=== PATIENT | male | born 1965 | race Caucasian/White ===

== ENCOUNTER 2017-03-24 18:37 | Observation (INO) | payer BC ==
[2017-03-24 18:55] LABS: Glucose,Whole Blood 87 mg/dL (75-99)
[2017-03-24] MEDS ORDERED: RX INFO: IV CONTRAST WAS GIVEN 1 EACH MISC MISCELLANE PRN (19:16)
[2017-03-24] MEDS ORDERED: SODIUM CHLORIDE 0.9% 1,000 ML IV STA (19:16)
[2017-03-24] MEDS ORDERED: diphenhydrAMINE 50 MG/ML 1 ML VIAL IVP STA (19:17)
[2017-03-24] MEDS ORDERED: methylPREDNISolone SOD SUCCI 125 MG/2 ML VIAL IV STA (19:18)
[2017-03-24] MEDS ORDERED: FAMOTIDINE 20 MG/2 ML VIAL IV STA (19:19)
[2017-03-24 19:32] LABS: Basophils % (A) 0 %; CH 33.1; CHCM 34.8; Eosinophils # (A) 0.2 k/uL (0-0.7); Eosinophils % (A) 2 %; HCT 45.6 % (39.0-53.0); HDW 2.13; HGB 15.3 gm/dL (13.0-17.5); Luc # (Auto) 0.14; Luc % (Auto) 2; Lymphocytes # (A) 1.8 k/uL (1.0-4.8); Lymphocytes % (A) 25 %; MCHC 33.5 g/dL (31.0-37.0); MCV 95.5 fL (80.0-100.0); Mean Platelet Volume 7.3; Monocytes # (A) 0.5 k/uL (0-1.0); Monocytes % (A) 7 %; Neutrophils # (A) 4.5 k/uL (1.3-7.7); Neutrophils % (A) 64 %; RBC 4.77 m/uL (4.30-5.90); RDW 12.5 % (11.5-15.5); WBC 7.1 k/uL (3.8-10.6); WBC (Perox) 6.99
[2017-03-24 19:41] LABS: INR 1.1 (<1.2); Prothrombin Time 10.8 sec (9.0-12.0)
[2017-03-24 19:49] LABS: Partial Thromboplastin Time 22.7 sec (22.0-30.0)
[2017-03-24 19:54] LABS: Appearance,Urine Clear (Clear); Bilirubin,Urine Negative (Negative); Glucose,Urine (UA) Negative (Negative); Ketones,Urine Negative (Negative); Leukocyte Esterase,Urine Negative (Negative); Nitrite,Urine Negative (Negative); PH, Urine 6.5 (5.0-8.0); Protein,Urine Negative (Negative); Specific Gravity,Urine 1.007 (1.001-1.035); UA Billing (MACRO vs. MICRO) CHEM; Urobilinogen,Urine <2.0 mg/dL (<2.0)
[2017-03-24 19:56] LABS: ALT 44 U/L (21-72); AST 45 U/L (17-59); Alkaline Phosphatase 52 U/L (38-126); Anion Gap 11 mmol/L; Blood Urea Nitrogen 18 mg/dL (9-20); Calcium 9.4 mg/dL (8.4-10.2); Carbon Dioxide 27 mmol/L (22-30); Chloride 101 mmol/L (98-107); Glucose 72 mg/dL (74-99); Non-African American GFR(MDRD) >60 (>60 ml/min/1.73 sqM); Potassium 4.5 mmol/L (3.5-5.1); Sodium 139 mmol/L (137-145); Total Bilirubin 0.7 mg/dL (0.2-1.3); Total Protein 6.5 g/dL (6.3-8.2)
[2017-03-24 20:16] LABS: Creatine Kinase 186 U/L (55-170)
--- NOTE | 2017-03-24 20:22 | CT ---
EXAMINATION TYPE: CT brain wo con DATE OF EXAM: 03/24/2017 COMPARISON: NONE HISTORY: Memory loss. CT DLP: 1017.7 mGycm Automated exposure control for dose reduction was used. FINDINGS: Ventricles of normal size. There is no mass effect nor midline shift. There is no sign of intracrania l hemorrhage. The calvarium is intact. IMPRESSION: NEGATIVE CT SCAN OF THE BRAIN.
--- NOTE | 2017-03-24 20:24 | XR ---
EXAMINATION TYPE: XR chest 2V DATE OF EXAM: 03/24/2017 COMPARISON: NONE HISTORY: Altered mental status TECHNIQUE: Frontal and lateral views of the chest are obtained. FINDINGS: There is no heart failure nor confluent pneumonic infiltrate. Heart size is normal. Costop hrenic angles are clear. Bony thorax is intact. IMPRESSION: Normal chest
[2017-03-24 20:27] LABS: Troponin I <0.012 ng/mL (0.000-0.034)
--- NOTE | 2017-03-24 20:33 | CT ---
EXAMINATION TYPE: CT angio head neck DATE OF EXAM: 03/24/2017 HISTORY: Sudden onset of memory loss. COMPARISON: NONE CT DLP: 299.6 mGycm. Automated Exposure Control for Dose Reduction was Utilized. TECHNIQUE: CTA scan of the neck is performed with IV Contrast, patient injected with 65 mL of Omnipa que 350, axial images are obtained, coronal and sagittal reformatted images are reviewed. Three-D rec onstructed images are created on an independent workstation and reviewed. FINDINGS: There is normal branching pattern of the great vessels on the aortic arch. There is bilateral wide pa tency of the vertebral arteries. There is bilateral patency of the carotid arteries. There is no evid ence of carotid dissection. There is arterial flow in the anterior middle and posterior cerebral arteries. There is arterial flow in the vertebrobasilar artery system. There is no evidence of aneurysm or neovascularity. There is n o mass effect. IMPRESSION: Normal CT angiogram of the neck. Normal CT angiogram of the brain.
[2017-03-24] MEDS ORDERED: ASPIRIN 81 MG PO STA (21:37)
[2017-03-24] MEDS ORDERED: ONDANSETRON 4 MG/2 ML VIAL IVP PRN (21:44)
[2017-03-24] MEDS ORDERED: ACETAMINOPHEN TAB 325 MG TAB PO PRN (21:44)
[2017-03-24] MEDS ORDERED: NALOXONE 0.4 MG/ML 1 ML VIAL IV PRN (21:44)
--- NOTE | 2017-03-24 21:44 | ED ---
Neuro HPI - General Chief Complaint: Neuro Symptoms/Deficit Stated Complaint: sudden onset memory loss Time Seen by Provider: 03/24/17 18:51 Source: patient Mode of arrival: ambulatory Limitations: no limitations - History of Present Illness Is the patient presenting with stroke symptoms?: No Last Known Well Date: 03/24/17 Last Known Well Time: 17:30 Initial Comments: 51 years old gentleman PG cooked dinner tonight when he sat down to eat he couldn't recall how old they are he had no recollection of unspecified length of time he had a blackout of memory for time. Around 5 PM today, he didn't pass out years ago. Denies any headaches white male no blurred vision no chest pain or shortness of breath no abdominal pain no frequency or dysuria dysuria no obvious neuro deficits - Related Data Home Medications: Home Medications Medication Instructions Recorded Confirmed No Known Home Medications [No 03/24/17 03/24/17 Known Home Medications] Allergies/Adverse Reactions: Allergies Allergy/AdvReac Type Severity Reaction Status Date / Time Iodinated Contrast- Oral and Allergy Swelling Verified 03/24/17 19:27 IV Dye iodine Allergy Swelling Verified 03/24/17 19:27 shellfish derived [Shellfish] Allergy Swelling Verified 03/24/17 19:27 Review of Systems ROS Statement: Those systems with pertinent positive or pertinent negative responses have been documented in the HPI. ROS Other: All systems not noted in ROS Statement are negative. General Exam - General Exam Comments Initial Comments: General: The patient is awake and alert, in no distress, and does not appear acutely ill. GCS is 15 Skin: Skin is warm and dry and no rashes or lesions are noted. Eye: Pupils are equal, round and reactive to light, extra-ocular movements are intact; there is normal conjunctiva bilaterally. Ears, nose, mouth and throat: There are moist mucous membranes and no oral lesions. Neck: The neck is supple, there is no tenderness Cardiovascular: There is a regular rate and rhythm. No murmur, rub or gallop is appreciated. Respiratory: To auscultation bilateral, no wheezing no rhonchi no distress respiratory espinoza noticed Gastrointestinal: Soft, non-distended, non-tender abdomen without masses or organomegaly noted. There is no rebound or guarding present. Bowel sounds are unremarkable. Back: There is no tenderness to palpation in the midline. There is no obvious deformity. Musculoskeletal: Normal ROM, no tenderness, There is no pedal edema. There is no calf tenderness or swelling. No cords were appreciated. Neurological: CN II-XII intact, Cranial nerves III through XII are intact. There are no obvious motor or sensory deficits. Coordination appears grossly intact. Speech is normal. Psychiatric: Cooperative, appropriate mood & affect, normal judgment. Limitations: no limitations Stroke MDM - Lab Data Result diagrams: 03/24/17 19:15 03/24/17 19:15 Lab Results 03/24/17 03/24/17 03/24/17 Range/Units 18:50 19:15 19:15 WBC 7.1 (3.8-10.6) k/uL RBC 4.77 (4.30-5.90) m/uL Hgb 15.3 (13.0-17.5) gm/dL Hct 45.6 (39.0-53.0) % MCV 95.5 (80.0-100.0) fL MCH 32.0 (25.0-35.0) pg MCHC 33.5 (31.0-37.0) g/dL RDW 12.5 (11.5-15.5) % Plt Count 203 (150-450) k/uL Neutrophils % 64 % Lymphocytes % 25 % Monocytes % 7 % Eosinophils % 2 % Basophils % 0 % Neutrophils # 4.5 (1.3-7.7) k/uL Lymphocytes # 1.8 (1.0-4.8) k/uL Monocytes # 0.5 (0-1.0) k/uL Eosinophils # 0.2 (0-0.7) k/uL Basophils # 0.0 (0-0.2) k/uL PT (9.0-12.0) sec INR (<1.2) APTT (22.0-30.0) sec Sodium (137-145) mmol/L Potassium (3.5-5.1) mmol/L Chloride (98-107) mmol/L Carbon Dioxide (22-30) mmol/L Anion Gap mmol/L BUN (9-20) mg/dL Creatinine (0.66-1.25) mg/dL Est GFR (MDRD) Af Amer (>60 ml/min/1.73 sqM) Est GFR (MDRD) Non-Af (>60 ml/min/1.73 sqM) Glucose (74-99) mg/dL POC Glucose (mg/dL) 87 (75-99) mg/dL POC Glu Entertainment Reporter ID Jennifer Coto Calcium (8.4-10.2) mg/dL Total Bilirubin (0.2-1.3) mg/dL AST (17-59) U/L ALT (21-72) U/L Alkaline Phosphatase (38-126) U/L Total Creatine Kinase 186 H (55-170) U/L CK-MB (CK-2) 1.0 (0.0-2.4) ng/mL CK-MB (CK-2) Rel Index 0.5 Troponin I <0.012 (0.000-0.034) ng/mL Total Protein (6.3-8.2) g/dL Albumin (3.5-5.0) g/dL Urine Color Urine Appearance (Clear) Urine pH (5.0-8.0) Ur Specific Lefors (1.001-1.035) Urine Protein (Negative) Urine Glucose (UA) (Negative) Urine Ketones (Negative) Urine Blood (Negative) Urine Nitrite (Negative) Urine Bilirubin (Negative) Urine Urobilinogen (<2.0) mg/dL Ur Leukocyte Esterase (Negative) Urine Opiates Screen (NotDetected) Ur Oxycodone Screen (NotDetected) Urine Methadone Screen (NotDetected) Ur Propoxyphene Screen (NotDetected) Ur Barbiturates Screen (NotDetected) U Tricyclic Antidepress (NotDetected) Ur Phencyclidine Scrn (NotDetected) Ur Amphetamines Screen (NotDetected) U Methamphetamines Scrn (NotDetected) U Benzodiazepines Scrn (NotDetected) Urine Cocaine Screen (NotDetected) U Marijuana (THC) Screen (NotDetected) 03/24/17 03/24/17 03/24/17 Range/Units 19:15 19:15 19:46 WBC (3.8-10.6) k/uL RBC (4.30-5.90) m/uL Hgb (13.0-17.5) gm/dL Hct (39.0-53.0) % MCV (80.0-100.0) fL MCH (25.0-35.0) pg MCHC (31.0-37.0) g/dL RDW (11.5-15.5) % Plt Count (150-450) k/uL Neutrophils % % Lymphocytes % % Monocytes % % Eosinophils % % Basophils % % Neutrophils # (1.3-7.7) k/uL Lymphocytes # (1.0-4.8) k/uL Monocytes # (0-1.0) k/uL Eosinophils # (0-0.7) k/uL Basophils # (0-0.2) k/uL PT 10.8 (9.0-12.0) sec INR 1.1 (<1.2) APTT 22.7 (22.0-30.0) sec Sodium 139 (137-145) mmol/L Potassium 4.5 (3.5-5.1) mmol/L Chloride 101 (98-107) mmol/L Carbon Dioxide 27 (22-30) mmol/L Anion Gap 11 mmol/L BUN 18 (9-20) mg/dL Creatinine 1.00 (0.66-1.25) mg/dL Est GFR (MDRD) Af Amer >60 (>60 ml/min/1.73 sqM) Est GFR (MDRD) Non-Af >60 (>60 ml/min/1.73 sqM) Glucose 72 L (74-99) mg/dL POC Glucose (mg/dL) (75-99) mg/dL POC Glu Entertainment Reporter ID Calcium 9.4 (8.4-10.2) mg/dL Total Bilirubin 0.7 (0.2-1.3) mg/dL AST 45 (17-59) U/L ALT 44 (21-72) U/L Alkaline Phosphatase 52 (38-126) U/L Total Creatine Kinase (55-170) U/L CK-MB (CK-2) (0.0-2.4) ng/mL CK-MB (CK-2) Rel Index Troponin I (0.000-0.034) ng/mL Total Protein 6.5 (6.3-8.2) g/dL Albumin 4.2 (3.5-5.0) g/dL Urine Color Yellow Urine Appearance Clear (Clear) Urine pH 6.5 (5.0-8.0) Ur Specific L[place] 1.007 (1.001-1.035) Urine Protein Negative (Negative) Urine Glucose (UA) Negative (Negative) Urine Ketones Negative (Negative) Urine Blood Negative (Negative) Urine Nitrite Negative (Negative) Urine Bilirubin Negative (Negative) Urine Urobilinogen <2.0 (<2.0) mg/dL Ur Leukocyte Esterase Negative (Negative) Urine Opiates Screen Not Detected (NotDetected) Ur Oxycodone Screen Not Detected (NotDetected) Urine Methadone Screen Not Detected (NotDetected) Ur Propoxyphene Screen Not Detected (NotDetected) Ur Barbiturates Screen Not Detected (NotDetected) U Tricyclic Antidepress Not Detected (NotDetected) Ur Phencyclidine Scrn Not Detected (NotDetected) Ur Amphetamines Screen Not Detected (NotDetected) U Methamphetamines Scrn Not Detected (NotDetected) U Benzodiazepines Scrn Not Detected (NotDetected) Urine Cocaine Screen Not Detected (NotDetected) U Marijuana (THC) Screen Not Detected (NotDetected) Past Medical History Past Medical History: No Reported History History of Any Multi-Drug Resistant Organisms: None Reported Past Surgical History: Cholecystectomy Additional Past Surgical History / Comment(s): cervical repair Past Psychological History: No Psychological Hx Reported Course Vital Signs 03/24/17 03/24/17 03/24/17 18:38 20:18 21:16 Temperature 97.2 F L Pulse Rate 81 78 84 Respiratory 18 18 18 Rate Blood Pressure 139/84 135/83 134/89 O2 Sat by Pulse 99 99 98 Oximetry EKG is normal sinus rhythm ventricular rate is 81 HI interval is 152 QRS duration is 86 QT/QTc is 372/432 review of this EKG does not reveal any ST elevation or ST depression Patient was reassessed at [address] is normal, CT angios normal chest x- ray CBC, INR, troponin, EKG and urinalysis all unremarkable differential diagnosis with the amnesia or TIA and discussed with the patient and recommended that we'll watch him overnight and have the neurologist see him tomorrow morning he agreed that we'll go ahead him admit him under Dr. guevara service and will call Dr. Landeros in the morning Disposition Clinical Impression: TIA (transient ischemic attack), Global amnesia Disposition: ADMITTED IP TO THIS HOSP Condition: Good Referrals: Marlena Agudelo MD [Primary Care Provider] - 1-2 days
[2017-03-25 00:19] VITALS: BMI 24.0
[2017-03-25] MEDS ORDERED: SUMAtriptan SUCCINATE 50 MG TAB PO PRN (00:40)
[2017-03-25] MEDS ORDERED: MORPHINE SULFATE 10 MG/ML SYRINGE IVP PRN (05:33)
--- NOTE | 2017-03-25 10:51 | P.HPIM ---
History of Present Illness H&P Date: 03/25/17 Chief Complaint: Loss of memory for about 45 minutes This is a 51-year-old male, patient of Dr. Agudelo. He has a past medical history of migraines and chronic neck pain with previous neck surgery. Patient came into the emergency room with complaints of memory loss for about 45 minute period of time. Patient went to work out yesterday with his . He just lifted weights did not do the cardio part of his work out because of fatigue. They came home. Patient was cooking dinner. He took a phone call. Sit down at the table and looked at his and said who cooked dinner. Patient does not remember cooking the dinner. He does not remember having the phone call. Patient was also putting weird condiments on his plate that didn't along with the dinner. became concerned when the patient had a blank look on his face. He repeated about 7 times "who made dinner." There is no slurring speech no facial droop. Denies any numbness or tingling on one side of the body. Denies any chest pain or shortness of breath. Denies any burning with urination. He has not been sick with any nausea or vomiting. Denies any bowel movement changes. Drug screen was negative. Computed tomography scan of the brain negative. CTA of the head and neck negative. Chest x-ray negative. Patient does report having a previous MRI of the brain done at [facility] to his migraines and he was told he had some white spots that were noted on the MRI. Patient has been admitted to the sixth floor. Telemetry- espinoza he is remained in normal sinus rhythm. We'll check an EEG. Patient has never had symptoms like this before. Patient did have a blood sugar of 72 in the emergency room. He did not get a chance to eat the dinner that he had made. But no previous history of any hypoglycemia or diabetes. Review of Systems Please refer to HPI otherwise unremarkable Past Medical History Past Medical History: No Reported History Additional Past Medical History / Comment(s): migraines, herniated disc in L4 & L5 History of Any Multi-Drug Resistant Organisms: None Reported Past Surgical History: Cholecystectomy Additional Past Surgical History / Comment(s): cervical repair Past Anesthesia/Blood Transfusion Reactions: No Reported Reaction Past Psychological History: No Psychological Hx Reported Smoking Status: Never smoker Past Drug Use History: None Reported - Past Family History Mother Additional Family Medical History / Comment(s): SCLERODERMA Medications and Allergies Home Medications Medication Instructions Recorded Confirmed Type Rizatriptan Benzoate [Maxalt] 10 mg PO Q8HR PRN 03/25/17 03/25/17 History Allergies Allergy/AdvReac Type Severity Reaction Status Date / Time Iodinated Contrast- Oral and Allergy Swelling Verified 03/24/17 19:27 IV Dye iodine Allergy Swelling Verified 03/24/17 19:27 shellfish derived [Shellfish] Allergy Swelling Verified 03/24/17 19:27 Physical Exam Vitals: Vital Signs Temp Pulse Pulse Resp BP BP Pulse Ox 03/25/17 08:33 97.7 F 89 16 132/84 98 03/25/17 04:00 97.7 F 85 16 121/80 97 03/24/17 23:40 81 16 03/24/17 23:34 97.0 F L 81 16 123/83 94 L 03/24/17 23:33 98.3 F 85 18 124/67 97 03/24/17 22:14 97.7 F 87 18 125/81 97 03/24/17 21:16 84 18 134/89 98 03/24/17 20:18 78 18 135/83 99 03/24/17 18:38 97.2 F L 81 18 139/84 99 Intake and Output 03/24/17 03/25/17 03/25/17 22:59 06:59 14:59 Intake Total 950 237 Output Total 400 Balance 550 237 Intake: Intake, IV Titration 950 Amount Sodium Chloride 0.9% 1, 950 000 ml @ 100 mls/hr IV . Q10H STA Rx#:[id number] Oral 237 Output: Urine 400 Other: Voiding Method Urinal Urinal Weight 76.204 kg 77.9 kg Head normocephalic Neck supple Lungs clear to auscultation bilaterally no wheezing or crackles Heart regular rate and rhythm S1-S2, no rub or gallop Abdomen is soft nontender nondistended positive bowel sounds no hepatosplenomegaly Extremities no edema Neuro alert and orientated to 3 Results CBC & Chem 7: 03/24/17 19:15 03/24/17 19:15 Labs: Abnormal Lab Results - Last 24 Hours (Table) 03/24/17 03/24/17 Range/Units 19:15 19:15 Glucose 72 L (74-99) mg/dL Total Creatine Kinase 186 H (55-170) U/L Thrombosis Risk Factor Assmnt - Choose All That Apply Any of the Below Risk Factors Present?: Yes Each Factor Represents 1 point: Age 41-60 years Other Risk Factors: No Other congenital or acquired thrombophilia - If yes, enter type in comment: No Thrombosis Risk Factor Assessment Total Risk Factor Score: 1 Thrombosis Risk Factor Assessment Level: Low Risk Assessment and Plan Assessment: 1. Acute loss of memory: Exact etiology unclear. Computed tomography scan of the brain negative. CTA of the head and neck negative. Chest x-ray negative. EKG showing a normal sinus rhythm. Check EEG to rule out seizure activity. Urinalysis negative. Drug screen negative. Patient did have a blood sugar of 72. We'll repeat labs now. And monitor. Neurology has been consulted. 2. History of migraine headaches 3. Chronic neck pain with previous neck surgery GI prophylaxis Pepcid and DVT prophylaxis subcu heparin Time with Patient: Greater than 30 (Greater than 50% of the total time spent in counseling and coordination of care.I performed an examination of the patient and discussed their management with the physician Packing Floor Worker. I have reviewed the Physician Packing Floor Worker's notes and agree with the documented findings and plan of care)
--- NOTE | 2017-03-25 11:45 | ECHOF ---
Referral Reason:TIA MEASUREMENTS -------- HEIGHT: 177.8 cm WEIGHT: 77.6 kg BP: 132/84 RVIDd: 2.1 cm (< 3.3) IVSd: 1.0 cm (0.6 - 1.1) LVIDd: 3.7 cm (3.9 - 5.3) LVPWd: 1.1 cm (0.6 - 1.1) IVSs: 1.6 cm LVIDs: 2.7 cm LVPWs: 1.5 cm LA Diam: 2.8 cm (2.7 - 3.8) LAESV Index (A-L): 15.64 ml/m Ao Diam: 3.9 cm (2.0 - 3.7) AV Cusp: 2.5 cm (1.5 - 2.6) MV EXCURSION: 18.612 mm (> 18.000) MV EF SLOPE: 108 mm/s (70 - 150) EPSS: 0.6 cm MV E Cheikh: 0.91 m/s MV DecT: 195 ms MV A Cheikh: 0.78 m/s MV E/A Ratio: 1.18 FINDINGS -------- Sinus rhythm. This was a technically good study. The left ventricular size is normal. There is borderline concentric left ventricular hypertrophy. Overall left ventricular systolic function is normal with, an EF between 55 - 60 %. The right ventricle is normal in size. Normal LA size by volume 22+/-6 ml/m2. The right atrium was not well visualized. The aortic valve is trileaflet, and appears structurally normal. No aortic stenosis or regurgitation. The mitral valve is normal. The tricuspid valve appears structurally normal. Trace/mild (physiologic) pulmonic regurgitation. The aortic root is dilated measuring 3.9cm. Normal inferior vena cava with normal inspiratory collapse consistent with estimated right atrial pre ssure of 5 mmHg. There is no pericardial effusion. CONCLUSIONS -------- 1. Sinus rhythm. 2. This was a technically good study. 3. There is borderline concentric left ventricular hypertrophy. 4. Overall left ventricular systolic function is normal with, an EF between 55 - 60 %. 5. Normal LA size by volume 22+/-6 ml/m2. 6. The right atrium was not well visualized. 7. The aortic valve is trileaflet, and appears structurally normal. No aortic stenosis or regurgitati on. 8. The mitral valve is normal. 9. The tricuspid valve appears structurally normal. 10. Trace/mild (physiologic) pulmonic regurgitation. 11. The aortic root is dilated measuring 3.9cm. 12. Normal inferior vena cava with normal inspiratory collapse consistent with estimated right atrial pressure of 5 mmHg. 13. There is no pericardial effusion. CADASTRAL ENGINEER: Aline Parsons RDCS
[2017-03-25 12:05] LABS: Anion Gap 8 mmol/L; Blood Urea Nitrogen 16 mg/dL (9-20); Calcium 8.7 mg/dL (8.4-10.2); Carbon Dioxide 26 mmol/L (22-30); Chloride 106 mmol/L (98-107); Glucose 114 mg/dL (74-99); Non-African American GFR(MDRD) >60 (>60 ml/min/1.73 sqM); Potassium 4.3 mmol/L (3.5-5.1); Sodium 140 mmol/L (137-145)
--- NOTE | 2017-03-25 18:13 | P.CNNES ---
History of Present Illness Consult date: 03/25/17 Requesting physician: Phoenix Bowen Reason for Consult: TIA History of Present Illness: Patient is a pleasant 51-year-old male who is being evaluated by the neurology service on 03/25/2017 per the request of Dr. BOWEN for loss of memory. Patient reports he had gone to work out with his yesterday. He states they came home and he had made dinner. They sat down to eat dinner and he does not recall preparing the meals. His sitdown with him and he repetitively asked who made the dinner. was concerned and patient was brought to the hospital. No seizure-like activity was described. Patient had no slurring of speech and no lateralizing weakness. No facial droop was noted. Computed tomography scan of the brain was negative for any acute process. Patient had CTA of the head and neck which also were negative for any acute findings. EKG on admission showed normal sinus rhythm. Patient denies any prior episodes. Vital signs on admission were temperature 97.7, respiratory rate 16, pulse 85, and blood pressure 121/80. Labs on admission were essentially unremarkable. Patient has had no return of symptoms since admission. At the time of my evaluation, patient is resting comfortably in bed and appears to be in no acute distress. is at the bedside. Review of Systems REVIEW OF SYSTEMS: Otherwise unremarkable and noncontributory. Past Medical History Past Medical History: No Reported History Additional Past Medical History / Comment(s): migraines, herniated disc in L4 & L5 History of Any Multi-Drug Resistant Organisms: None Reported Past Surgical History: Cholecystectomy Additional Past Surgical History / Comment(s): cervical repair Past Anesthesia/Blood Transfusion Reactions: No Reported Reaction Past Psychological History: No Psychological Hx Reported Smoking Status: Never smoker Past Drug Use History: None Reported - Past Family History Mother Additional Family Medical History / Comment(s): SCLERODERMA Medications and Allergies Home Medications Medication Instructions Recorded Confirmed Type Rizatriptan Benzoate [Maxalt] 10 mg PO Q8HR PRN 03/25/17 03/25/17 History Allergies Allergy/AdvReac Type Severity Reaction Status Date / Time Iodinated Contrast- Oral and Allergy Swelling Verified 03/24/17 19:27 IV Dye iodine Allergy Swelling Verified 03/24/17 19:27 shellfish derived [Shellfish] Allergy Swelling Verified 03/24/17 19:27 Physical Examination - Vital Signs Vital Signs: Vital Signs Temp Pulse Pulse Resp BP BP Pulse Ox 03/25/17 16:00 98.2 F 70 16 106/68 97 03/25/17 12:20 98.1 F 83 16 120/70 100 03/25/17 08:33 97.7 F 89 16 132/84 98 03/25/17 04:00 97.7 F 85 16 121/80 97 03/24/17 23:40 81 16 03/24/17 23:34 97.0 F L 81 16 123/83 94 L 03/24/17 23:33 98.3 F 85 18 124/67 97 03/24/17 22:14 97.7 F 87 18 125/81 97 03/24/17 21:16 84 18 134/89 98 03/24/17 20:18 78 18 135/83 99 03/24/17 18:38 97.2 F L 81 18 139/84 99 Intake and Output 03/25/17 03/25/17 03/25/17 06:59 14:59 22:59 Intake Total 950 477 Output Total 400 Balance 550 477 Intake: Intake, IV Titration 950 Amount Sodium Chloride 0.9% 1, 950 000 ml @ 100 mls/hr IV . Q10H STA Rx#:[id number] Oral 477 Output: Urine 400 Other: Voiding Method Urinal Urinal Urinal Weight 77.9 kg PHYSICAL EXAM: GENERAL APPEARANCE: Patient is a well-developed, male who appears to be in no acute distress. HEENT: Normocephalic, atraumatic, no facial asymmetry is seen. Neck is supple with no masses felt. CARDIOVASCULAR: Regular rate and rhythm. ABDOMEN: Nontender, nondistended. EXTREMITIES: Show no edema or clubbing. NEUROLOGICAL EXAM: Patient is awake, alert, and oriented 3. Speech and language are normal. Strength is full in all 4 extremities. Sensory exam to light touch is normal in all 4 extremities. No facial asymmetry is seen on cranial nerve testing. No tremors or seizure-like activity noted. Results - Laboratory Findings CBC and BMP: 03/24/17 19:15 03/25/17 11:03 Abnormal Lab Findings: Abnormal Labs 03/24/17 03/24/17 03/25/17 19:15 19:15 11:03 Glucose 72 L 114 H Total Creatine Kinase 186 H Assessment and Plan Plan: Impression: 1. Transient amnestic attack secondary to transient ischemic attack 2. History of migraines 3. History of cervical disc displacement Recommendations: It does appear patient suffered a transient amnestic attack secondary to transient ischemic attack. No further episodes since admission. CT of the brain was negative for any acute process. CTA of the brain and neck were also normal. I will order carotid Dopplers. I recommend aspirin 81 mg by mouth daily. I will order an EEG, fasting lipid panel, and serum homocysteine level. Continue neurological checks. I will continue to follow with you. Further recommendations to follow. Thank you for allowing me to participate in the care of your patient. Feel free to call with any questions or concerns. I performed an examination of the patient and discussed the management with the LINK KNITTING MACHINE OPERATOR. I have reviewed the LINK KNITTING MACHINE OPERATOR notes and agree with the findings and plan of care.
[2017-03-25 19:01] LABS: Cholesterol 142 mg/dL (<200); HDL Cholesterol 57 mg/dL (40-60)
--- NOTE | 2017-03-25 19:33 | US ---
EXAMINATION TYPE: US carotid duplex BILAT DATE OF EXAM: 03/25/2017 COMPARISON: NONE CLINICAL HISTORY: TIA. EXAM MEASUREMENTS: RIGHT: Peak Systolic Velocity (PSV) cm/sec ----- Right CCA: 66.7 ----- Right ICA: 78.4 ----- Right ECA: 81.3 ICA/CCA ratio: 1.2 RIGHT: End Diastole cm/sec ----- Right CCA: 23.1 ----- Right ICA: 34.8 ----- Right ECA: 11.5 LEFT: Peak Systolic Velocity (PSV) cm/sec ----- Left CCA: 85.6 ----- Left ICA: 75.4 ----- Left ECA: 68.2 ICA/CCA ratio: 0.9 LEFT: End Diastole cm/sec ----- Left CCA: 31.8 ----- Left ICA: 26.0 ----- Left ECA: 18.8 VERTEBRALS (direction of flow): Right Vertebral: Antegrade Left Vertebral: Antegrade Rhythm: Normal Minimal amount of plaque visualized bilaterally. No elevated velocities, no significant stenosis. IMPRESSION: There is antegrade flow in the vertebral arteries. The images and measurements suggest 2 0% stenosis in both internal carotid arteries. Criteria for Assigning % of Stenosis / Diameter reduction (Estimation based on the indirect measurements of the internal carotid artery velocities (ICA PSV). 1. Normal (no stenosis)=ICA PSV < 125 cm/s: ratio < 2.0: ICA EDV<40 cm/s. 2. Less than 50% stenosis=ICA PSV < 125 cm/s: ratio < 2.0: ICA EDV<40 cm/s. 3. 50 to 69% stenosis=ICA PSV of 125 to 230 cm/s: ration 2.0 ? 4.0: ICA EDV 40-100 cm/s. 4. Greater than 70% stenosis to near occlusion= ICA PSV > 230 cm/s: ratio > 4.0: ICA EDV > 100 cm/s. 5. Near occlusion= ICA PSV velocities may be low or undetectable: variable ratio and ICA EDV. 6. Total occlusion=unable to detect flow.
[2017-03-25] MEDS: ASPIRIN 81 MG PO SCH (19:46)
[2017-03-25] MEDS: HEPARIN SODIUM,PORCINE 5,000 UNIT/ML 1 ML VIAL SQ SCH (19:46)
[2017-03-25 20:03] VITALS: RESP 18
[2017-03-26 06:44] LABS: Basophils % (A) 0 %; CH 32.3; CHCM 32.8; Eosinophils # (A) 0.1 k/uL (0-0.7); Eosinophils % (A) 1 %; HCT 43.7 % (39.0-53.0); HDW 2.05; HGB 14.1 gm/dL (13.0-17.5); Luc # (Auto) 0.11; Luc % (Auto) 2; Lymphocytes % (A) 30 %; MCH 31.8 pg (25.0-35.0); MCHC 32.2 g/dL (31.0-37.0); MCV 98.8 fL (80.0-100.0); Mean Platelet Volume 7.9; Monocytes # (A) 0.4 k/uL (0-1.0); Monocytes % (A) 6 %; Neutrophils # (A) 4.3 k/uL (1.3-7.7); Neutrophils % (A) 62 %; RBC 4.42 m/uL (4.30-5.90); RDW 13.9 % (11.5-15.5); WBC 6.9 k/uL (3.8-10.6); WBC (Perox) 6.64
[2017-03-26 07:00] LABS: ALT 32 U/L (21-72); AST 23 U/L (17-59); Alkaline Phosphatase 43 U/L (38-126); Anion Gap 6 mmol/L; Blood Urea Nitrogen 16 mg/dL (9-20); Calcium 8.5 mg/dL (8.4-10.2); Carbon Dioxide 28 mmol/L (22-30); Chloride 108 mmol/L (98-107); Glucose 90 mg/dL (74-99); Non-African American GFR(MDRD) >60 (>60 ml/min/1.73 sqM); Potassium 3.9 mmol/L (3.5-5.1); Sodium 142 mmol/L (137-145); Total Bilirubin 0.6 mg/dL (0.2-1.3); Total Protein 5.3 g/dL (6.3-8.2)
[2017-03-26] MEDS: ASPIRIN 81 MG PO SCH (08:43)
--- NOTE | 2017-03-26 11:11 | P.PN ---
Subjective Progress Note Date: 03/26/17 Patient is a pleasant 51-year-old male who is being followed by the neurology service for TIA. Patient's doing much better today. Patient states he feels back to baseline. is at the bedside and agrees. Patient still does not recall loss of time he had which brought him to [facility] emergency room. As you recall, computed tomography scan of the brain was negative for any acute process. Patient had CTA of the head and neck which were negative for any acute findings. EKG showed normal sinus rhythm. Patient denies any history of CVA or TIA. Patient was not on any antiplatelet therapy at home. No seizure-like activity was described. At the time of my evaluation, patient is resting comfortably in bed and appears to be in no acute distress. is at the bedside. Objective - Vital Signs Vital signs: Vital Signs Temp 97.1 F L 03/26/17 04:00 Pulse 76 03/26/17 04:00 Resp 18 03/26/17 04:00 BP 108/67 03/26/17 04:00 Pulse Ox 96 03/26/17 04:00 Intake & Output 03/25/17 03/26/17 03/26/17 18:59 06:59 18:59 Intake Total 477 480 Balance 477 480 Weight 78.7 kg Intake: Oral 477 480 Other: Voiding Method Urinal Urinal # Voids 2 - Exam PHYSICAL EXAM: GENERAL APPEARANCE: Patient is a well-developed, male who appears to be in no acute distress. HEENT: Normocephalic, atraumatic, no facial asymmetry is seen. Neck is supple with no masses felt. CARDIOVASCULAR: Regular rate and rhythm. ABDOMEN: Nontender, nondistended. EXTREMITIES: Show no edema or clubbing. NEUROLOGICAL EXAM: Patient is awake, alert, and oriented 3. Speech and language are normal. No facial asymmetry is noted on cranial nerve testing. Strength is full in all 4 extremities. Sensory exam to light touch is normal in all 4 extremities. No seizures or tremors were noted. - Labs CBC & Chem 7: 03/26/17 06:15 03/26/17 06:15 Labs: Abnormal Lab Results - Last 24 Hours (Table) 03/25/17 03/26/17 Range/Units 11:03 06:15 Chloride 108 H (98-107) mmol/L Glucose 114 H (74-99) mg/dL Total Protein 5.3 L (6.3-8.2) g/dL Albumin 3.1 L (3.5-5.0) g/dL Assessment and Plan Plan: Impression: 1. Transient amnestic attack secondary to transient ischemic attack 2. History of migraines 3. History of cervical disc displacement Recommendations: It does appear patient suffered a transient amnestic attack secondary to transient ischemic attack. No further episodes since admission. CT of the brain was negative for any acute process. CTA of the brain and neck were also normal. Carotid Doppler showed 20% stenosis in bilateral internal carotid arteries. Continue aspirin 81 mg by mouth daily. EEG was done and results are pending. Fasting lipid panel was within normal limits. Homocystine level is pending. Continue neurological checks. Patient is stable for discharge from neurology standpoint patient can follow up in the office. I will continue to follow with you on an as-needed basis. Feel free to call with any questions or concerns. I performed an examination of the patient and discussed the management with the [employer]AGE [employer]ER. I have reviewed the SA[employer]AGE [employer]ER notes and agree with the findings and plan of care.
[2017-03-26] MEDS: HEPARIN SODIUM,PORCINE 5,000 UNIT/ML 1 ML VIAL SQ SCH (11:28)
[2017-03-26 11:50] VITALS: PULSE 79
[2017-03-26 11:52] VITALS: BP 112/73; TEMP 98.2
--- NOTE | 2017-03-26 12:08 | P.DS ---
Providers Date of admission: 03/24/17 21:44 Expected date of discharge: 03/26/17 Attending physician: Phoenix Hendricks Consults: 03/24/17 21:44 Consult Physician Stat Consulting Provider: Alejandro Landeros Consult Reason/Comments: TIA, amnesia Do you want consulting provider notified?: Yes Primary care physician: Marlena Agudelo Hospital Course: Diagnoses on discharge: 1. Transient amnestic attack possibly secondary to transient ischemic attack 2. History of migraines 3. History of cervical disc displacement 4. Possible hypoglycemia glucose level on arrival to [facility] ER was 72 patient is instructed to check her glucose level if having any episodes of dizziness lightheadedness, or any similar episodes. Hospital course: This is a 51-year-old male, patient of Dr. Agudelo. He has a past medical history of migraines and chronic neck pain with previous neck surgery. Patient came into the emergency room with complaints of memory loss for about 45 minute period of time. Patient went to work out yesterday with his . He just lifted weights did not do the cardio part of his work out because of fatigue. They came home. Patient was cooking dinner. He took a phone call. Sit down at the table and looked at his and said who cooked dinner. Patient does not remember cooking the dinner. He does not remember having the phone call. Patient was also putting weird condiments on his plate that didn't along with the dinner. became concerned when the patient had a blank look on his face. He repeated about 7 times "who made dinner." There is no slurring speech no facial droop. Denies any numbness or tingling on one side of the body. Denies any chest pain or shortness of breath. Denies any burning with urination. He has not been sick with any nausea or vomiting. Denies any bowel movement changes. Drug screen was negative. Computed tomography scan of the brain negative. CTA of the head and neck negative. Chest x-ray negative. Patient does report having a previous MRI of the brain done at [facility] to his migraines and he was told he had some white spots that were noted on the MRI. Patient has been admitted to the sixth floor. Telemetry- espinoza he is remained in normal sinus rhythm. We'll check an EEG. Patient has never had symptoms like this before. Patient did have a blood sugar of 72 in the emergency room. He did not get a chance to eat the dinner that he had made. But no previous history of any hypoglycemia or diabetes. Patient evaluated by neurology EEG was done and results are still pending patient encouraged to follow-up was Dr. Landeros as outpatient. All other testing including computed tomography scan of the brain CT angiogram and carotid Doppler failed to reveal any abnormality Aspirin 81 mg by mouth daily was added to regimen Patient was discharged home on 03/26/2017 in satisfactory condition patient and state that he was back to his baseline He was told to return to emergency room if any new episodes occur During this admission there was no evidence of cardiac arrhythmia on telemetry monitoring. Follow-up with his primary care physician Dr. Agudelo in one week Patient Condition at Discharge: Good Plan - Discharge Summary Discharge Rx Participant: No New Discharge Prescriptions: New Acetaminophen Tab [Tylenol] 650 mg PO Q6HR PRN tab PRN Reason: Mild Pain Or Fever > 100.5 Aspirin 81 mg PO DAILY chew Continue Rizatriptan Benzoate [Maxalt] 10 mg PO Q8HR PRN PRN Reason: Migraine Headache Discharge Medication List Rizatriptan Benzoate [Maxalt] 10 mg PO Q8HR PRN 03/25/17 [History] Acetaminophen Tab [Tylenol] 650 mg PO Q6HR PRN tab 03/26/17 [Rx] Aspirin 81 mg PO DAILY chew 03/26/17 [Rx] Follow up Appointment(s)/Referral(s): Marlena Agudelo MD [Primary Care Provider] - 1-2 days
--- NOTE | 2017-04-08 09:47 | EEG ---
ELECTROENCEPHALOGRAM REPORT DATE OF SERVICE: 03/25/2017 REASON FOR TESTING: Transient ischemic attack, transient amnestic spell. DESCRIPTION OF THE PROCEDURE: This EEG was performed using a 21 channel digital electroencephalograph, following international 10-20 system. DESCRIPTION OF THE RECORDING: From the beginning of the tracing, with patient's eyes closed, the background rhythm was mostly consisting of 9 Hz alpha frequency in the posterior occipital leads. No obvious asymmetry is seen. Photic stimulation was performed with a good driving response seen. No pathological waves were elicited. Occasional movement artifacts are seen. Occasional blink artifacts are also noticed. Hyperventilation was not performed. The patient remains awake throughout the tracing. No epileptiform discharges were seen. His EKG lead showed a regular rate and rhythm. INTERPRETATION: This awake EEG can be considered within normal limits. There was no asymmetry seen. No epileptiform discharges were noticed. The absence of epileptiform discharges does not rule out the diagnosis of epilepsy, therefore clinical correlation is recommended. MMEMMANUELL / IJBolivar: [id number] /
== END 2017-03-26 12:55 | disposition home or self-care (01) ==
LOC: EC 18:37 → 6SEL 21:44
PROVIDERS: ADMIT Internal Medicine; ATTEND Internal Medicine
DX: R41.3 Other amnesia (principal); G45.9 Transient cerebral ischemic attack, unspecified; G43.909 Migraine, unspecified, not intractable, without status migrainosus; M50.20 Other cervical disc displacement, unspecified cervical region; M51.26 Other intervertebral disc displacement, lumbar region; G89.29 Other chronic pain; Z88.3 Allergy status to other anti-infective agents; Z91.041 Radiographic dye allergy status; Z91.013 Allergy to seafood
CPT/HCPCS: 36415; 70450; 70496; 70498; 71020; 80048; 80053; 80061; 80306; 81003; 82550; 82553; 83090; 84484; 85025; 85610; 85730; 93005; 93306; 93880; 95816; 96361; 96372; 96374; 96375; 99285

== ENCOUNTER → 2017-06-06 | Outpatient (CLI) | payer BC ==
--- NOTE | 2017-06-06 23:26 | MR ---
EXAMINATION TYPE: MR cervical spine wo/w con DATE OF EXAM: 06/06/2017 COMPARISON: NONE HISTORY: Neck and Right Shoulder Pqain x10 years TECHNIQUE: Multiplanar, multisequence images of the cervical spine were acquired utilizing 7.5 mL intravenous Ga davist gadolinium contrast. Diffusion weighted imaging was performed. The cervical vertebra have normal alignment. There is metal artifact from anterior fusion surgery at C5-6. Cervical spinal cord has normal signal pattern. There is no evidence of edema. There is no spin al stenosis. There is a minute posterior disc bulge at C4-5. I see no focal bone destruction. There i s no cervical paraspinal mass. There is no pathologic enhancement. There is no significant disc space narrowing. IMPRESSION: Previous surgery. No spinal stenosis. No cervical disc herniation. Small posterior C4-5 disc bulge.
== END | disposition home or self-care (01) ==
LOC: RADMRIMAIN 17:01
PROVIDERS: ATTEND Orthopaedic Surgery
DX: M50.121 Cervical disc disorder at C4-C5 level with radiculopathy (principal); M43.12 Spondylolisthesis, cervical region; M25.511 Pain in right shoulder; Z98.1 Arthrodesis status
CPT/HCPCS: 72156; A9581

== ENCOUNTER → 2020-02-28 | Outpatient (CLI) | payer BC ==
[2020-02-28 16:27] LABS: Basophils % (A) 0 %; Eosinophils # (A) 0.1 k/uL (0-0.7); Eosinophils % (A) 1 %; HCT 46.1 % (39.0-53.0); HGB 15.2 gm/dL (13.0-17.5); Lymphocytes # (A) 1.3 k/uL (1.0-4.8); Lymphocytes % (A) 17 %; MCH 32.3 pg (25.0-35.0); MCHC 33.1 g/dL (31.0-37.0); MCV 97.7 fL (80.0-100.0); Mean Platelet Volume 7.5; Monocytes # (A) 0.4 k/uL (0-1.0); Monocytes % (A) 5 %; Neutrophils # (A) 5.8 k/uL (1.3-7.7); Neutrophils % (A) 76 %; Platelet Count 213 k/uL (150-450); RBC 4.72 m/uL (4.30-5.90); RDW 12.5 % (11.5-15.5); WBC 7.6 k/uL (3.8-10.6)
[2020-02-29 02:31] LABS: Cyclic Citrull Pep IgG Unit <0.5 U/mL; Cyclic Citrullinated Pep IgG NEGATIVE (NEGATIVE)
[2020-02-29 02:41] LABS: Erythrocyte Sedimentation Rate 1 mm/Hr (0-20)
[2020-02-29 07:08] LABS: ALT 23 U/L (10-49); AST 29 U/L (14-35); African American GFR (CKD) 98.5 (60.0-200.0); C Reactive Protein <0.4 mg/dL (0.0-0.8); Calcium 9.5 mg/dL (8.7-10.3); Carbon Dioxide 26.6 mmol/L (21.6-31.8); Chloride 103 mmol/L (96-109); Creatine Kinase 130 U/L (35-257); Glucose 86 mg/dL (70-110); Non-African American GFR(CKD) 84.9 (60.0-200.0); Potassium 4.4 mmol/L (3.5-5.5); Rheumatoid Factor, Qnt <4 IU/mL (0-15); Sodium 142 mmol/L (135-145); Uric Acid 5.9 mg/dL (3.7-8.7)
[2020-02-29 11:37] LABS: Angiotensin-1 Converting Enz. 28 U/L (8-52)
[2020-02-29 11:51] LABS: HLA B27 NEGATIVE
[2020-02-29 16:15] LABS: Vitamin D, 1, 25-Dihydroxy 54 pg/mL (20 - 79)
== END | disposition home or self-care (01) ==
LOC: LABWHC1 16:00
PROVIDERS: ATTEND Physician Assistant
DX: M79.672 Pain in left foot (principal); M19.072 Primary osteoarthritis, left ankle and foot
CPT/HCPCS: 36415; 80048; 82164; 82306; 82550; 82652; 84439; 84443; 84450; 84460; 84550; 85025; 85652; 86038; 86140; 86200; 86431; 86812

== ENCOUNTER → 2020-10-25 | Outpatient (CLI) | payer BC | END | disposition home or self-care (01) | LOC: LABWHC1 08:39 | PROVIDERS: ATTEND Nurse Practitioner Family | DX: L02.821 Furuncle of head [any part, except face] (principal) | CPT/HCPCS: 36415; 82465; 84450; 84460; 84478 ==

== ENCOUNTER → 2020-12-29 | Outpatient (CLI) | payer BC ==
--- NOTE | 2020-12-29 15:11 | CT ---
EXAMINATION TYPE: CT foot LT wo con DATE OF EXAM: 12/29/2020 COMPARISON: None HISTORY: 55-year-old male M20.22, hallux rigidus. LEFT foot arthritis TECHNIQUE: Contiguous axial scanning of the left foot without IV contrast. Coronal and sagittal recon structions performed. 3-D reconstructions generated on a dedicated workstation. CT DLP: 151.3 mGycm Automated exposure control for dose reduction was used. FINDINGS: There is moderate degenerative change at the first MTP joint with marginal spurring and joint space n arrowing. Slight inferior joint subluxation. No large bulky marginal spurring or restricting spurs ar e clearly identified. Mild degenerative change of the first metatarsal sesamoid joints. Degenerative subchondral cystic change along the medial mid talar dome Subtalar joint is aligned. Normal accessory ossicle os peroneum. Also, type I accessory navicular. Smooth delineation to the Achilles tendon. No acute fracture, subluxation, dislocation. IMPRESSION: 1. MODERATE FIRST MTP JOINT OA. 2. MILD TO MODERATE OSTEOARTHROSIS WITH SUBCHONDRAL CYSTIC LOCALIZED TO THE MID MEDIAL TALAR DOME AT THE TIBIOTALAR JOINT.
== END | disposition home or self-care (01) ==
LOC: RADCTMAIN 09:22
PROVIDERS: ATTEND Orthopaedic Surgery
DX: M19.072 Primary osteoarthritis, left ankle and foot (principal)

== ENCOUNTER 2021-05-08 08:41 | Day surgery (SDC) | payer BC ==
[2021-05-05 14:54] VITALS: BMI 24.3
[2021-05-08] MEDS ORDERED: LACTATED RINGERS 1,000 ML IV SCH (08:55)
[2021-05-08] MEDS ORDERED: SCOPOLAMINE 1.5MG/72HR PATCH TRANSDERM ONE (08:55)
[2021-05-08] MEDS ORDERED: DEXAMETHASONE SOD PHOSPHATE 4 MG/ML 1 ML VIAL IV ONE (08:55)
[2021-05-08] MEDS ORDERED: MIDAZOLAM 2 MG/2 ML VIAL IV PRN (08:55)
[2021-05-08] MEDS ORDERED: ONDANSETRON 4 MG/2 ML VIAL IVP ONE ×2 (08:55→11:19)
[2021-05-08] MEDS ORDERED: .fentaNYL (PF) 50 MCG/ML 2 ML AMP IV PRN (08:55)
[2021-05-08] MEDS ORDERED: LIDOCAINE 1% (10MG/ML) FOR IV START INTRADERMA ONE (09:32)
[2021-05-08] MEDS ORDERED: LIDOCAINE 1% INJ 10MG/ML (20 ML MDV) ONE (09:48)
[2021-05-08] MEDS ORDERED: .fentaNYL (PF) 50 MCG/ML 2 ML AMP ONE (09:48)
[2021-05-08] MEDS ORDERED: MIDAZOLAM 2 MG/2 ML VIAL ONE (09:48)
[2021-05-08] MEDS ORDERED: PROPOFOL 10 MG/ML 20 ML VIAL IV ONE (09:48)
[2021-05-08] MEDS ORDERED: BUPIVACAINE (PF) 0.25% 30 ML VIAL SQ ONE (10:05)
[2021-05-08 11:27] VITALS: TEMP 97.1
[2021-05-08] MEDS ORDERED: diphenhydrAMINE 50 MG/ML 1 ML VIAL IVP ONE (11:34)
[2021-05-08] MEDS ORDERED: LACTATED RINGERS 1,000 ML IV ONE ×2 (11:44)
[2021-05-08 11:46] VITALS: RESP 16
[2021-05-08 13:09] VITALS: BP 122/82; PULSE 70
--- NOTE | 2021-05-08 15:25 | P.OP ---
Date of Procedure: 05/08/21 Preoperative Diagnosis: Hallux rigidus left foot Postoperative Diagnosis: Same Procedure(s) Performed: First metatarsal phalangeal joint arthrodesis left foot Implants: Arthrex first metatarsal phalangeal joint arthrodesis plate and screws 1 mL AlloMatrix Anesthesia: JACQUES Surgeon: Brian Arshad Estimated Blood Loss (ml): 2 Pathology: none sent Condition: stable Disposition: PACU Operative Findings: Full-thickness articular cartilage loss on the first metatarsal head and base of the proximal phalanx of the great toe left foot Description of Procedure: The patient brought into the operating room placed on table supine position. Timeout was taken to confirm correct patient identifiers correct site of surgery and correct procedure. All staff in the room in agreement the patient was induced and placed under general anesthesia. A cc 0.25% Marcaine was injected as an ankle block. The foot and ankle were then prepped and draped in usual manner. The foot was exsanguinated the tourniquet inflated 250 motors mercury. Attention directed over the dorsomedial aspects of the left first MPJ. A linear incision was made made between the long extensor tendon neurovascular structures. It was deepened under the subcu tissue careful to identify, avoid, and retract any neurovascular structures and cauterize any bleeding vessels. Dissection was then carried down to the periosteum and capsule. Incision was made to the periosteum and capsule medial to the long extensor tendon. Soft tissues reflected off the first metatarsal and base of proximal phalanx. Visual inspection of the joint showed full thickness erosion of the articular surfaces of both metatarsal and base proximal phalanx. There is also osteophytic formation of the medial lateral side of the first metatarsal head. A guidewire was placed in the central aspect of the first metatarsal head and advanced into the medullary canal parallel to the long axis. I saw was then used to remove any of the osteophytes of the lateral side of the head. The concave reamer was then used to remove the articular cartilage and subchondral bone down to bleeding medullary the guidewire was removed and then used to fenestrate first metatarsal. The guidewire was then placed in the central aspect of the base of the proximal phalanx and advanced into the medullary canal parallel to long axis. The convex reamer was then used to remove the articular cartilage and subchondral bone down to bleeding medullary bone. The guidewire was removed used to fenestrate the surface also. The wound is then irrigated thoroughly with antibiotic saline. AlloMatrix bone putty was then mixed on the back table and then placed between the arthrodesis segments. An Arthrex MaxForce plate was then positioned over the arthrodesis site so that the line in the plate matched the joint line. Once positioned it was temporarily fixated. Final positioning was confirmed under fluoroscopy. 2 distal locking screws were placed in the proximal phalanx first and then the drill hole for the compression device was then utilized and the compression device was inserted and increased compression was noted across site. The temporary fixation was then placed back into the plate and then the second compression screw was inserted proximal. 2 additional locking screws were placed one distal and proximal to the last nonlocking screw was placed in the proximal plate. The wound is irrigated again with thigh pneumatic saline. The capsules closed with 2-0 Vicryl. Subcu closure done for Monocryl. Skin closure done with 3-0 Stratafix in a running subcuticular manner. Dermal glue and Steri-Strips are placed across incision then covered the Arthrex jumpstart dressing and a bulky dry dressing. The tourniquet was released and capillary refill return to all digits on the foot Short plaster posterior mold sugar tong splint was placed in over the foot and ankle which was then held in neutral position until dried. Anesthesia was reversed and the patient was taken recovery with vital signs stable
== END 2021-05-08 13:25 | disposition home or self-care (01) ==
LOC: OR 08:41
PROVIDERS: ATTEND Podiatrist
DX: M20.22 Hallux rigidus, left foot (principal)
CPT/HCPCS: 28750; C1713; J2250; J1200; J1100; J0690; J2405; J2001; J3010; J2704; J1790

== ENCOUNTER 2023-01-14 10:18 | Day surgery (SDC) | payer BC ==
[2023-01-14] MEDS ORDERED: LACTATED RINGERS 1,000 ML IV SCH (10:42)
[2023-01-14 10:51] VITALS: TEMP 97.6
[2023-01-14] MEDS ORDERED: PROPOFOL 10 MG/ML 20 ML VIAL IV ONE (12:57)
--- NOTE | 2023-01-14 13:13 | P.PCN ---
Date of Procedure: 01/14/23 Procedure(s) Performed: BRIEF HISTORY: Patient is a 57-year-old pleasant white male scheduled for an elective colonoscopy as a part of screening for colon cancer and strong family history of colon cancer. His mother was diagnosed with an colon cancer at 70, maternal grandmother at age 60 and maternal aunt at age 24. His last colonoscopy was 3 years ago and was normal. PROCEDURE PERFORMED: Colonoscopy. PREOPERATIVE DIAGNOSIS: Screening for colon cancer/strong family history of colon cancer. IV sedation per Anesthesia. PROCEDURE: After informed consent was obtained, the patient, was brought into the endoscopy unit. IV sedation was administered by Anesthesia under continuous monitoring. Digital rectal examination was normal. Initially the Olympus CF-160 flexible video colonoscope was then inserted in the rectum, gradually advanced into the cecum without any difficulty. Careful examination was performed as the scope was gradually being withdrawn. Ileocecal valve and the appendiceal orifice were visualized and appeared normal. Prep was excellent. Mucosa of the cecum, ascending colon, transverse colon, descending colon, sigmoid colon, and rectum appeared normal. Retroflexion was performed in the rectum and no lesions were seen. The patient tolerated the procedure well. IMPRESSION: Normal-appearing colon from rectum to cecum with no evidence of colorectal neoplasia . RECOMMENDATIONS: Findings of this examination were discussed with the patient as well as his family. He was advised to have a repeat screening colonoscopy every 3 years because of the strong family history of colon cancer.
[2023-01-14 13:21] VITALS: RESP 14
[2023-01-14 13:38] VITALS: BP 142/76; PULSE 76
== END 2023-01-14 13:46 | disposition home or self-care (01) ==
LOC: ORWHC2ENDO 10:18
PROVIDERS: ATTEND Internal Medicine Gastroenterology
DX: Z12.11 Encounter for screening for malignant neoplasm of colon (principal); G43.909 Migraine, unspecified, not intractable, without status migrainosus; Z80.0 Family history of malignant neoplasm of digestive organs; Z88.8 Allergy status to other drugs, medicaments and biological substances; Z91.041 Radiographic dye allergy status; Z79.899 Other long term (current) drug therapy
CPT/HCPCS: 45378; J2704